=== PATIENT | female | born 1995 | race Caucasian/White ===

== ENCOUNTER → 2017-07-14 | Outpatient (CLI) | payer OTHER ==
--- NOTE | 2017-07-14 15:54 | RADIOLOGY REPORT (SQ) ---
EXAM DESCRIPTION: MRI RT LOWER JOINT WITHOUT COMPLETED DATE/TIME: 07/14/2017 9:16 am REASON FOR STUDY: UNSPECIFIED INTERNAL DERANGEMENT OF RIGHT KNEE (M23.91) M23.91 UNSPECIFIED MANAGER PAYER AL DERANGEMENT OF RIGHT KNEE COMPARISON: None. TECHNIQUE: Rightknee images acquired and stored on PACS. Multiplanar images include fat sensitive s equences as T1, water sensitive sequences as FST2 or STIR, cartilage sensitive sequences as FSPD, and gradient echo sequences. LIMITATIONS: None. FINDINGS: JOINT AND BURSAE: Small joint effusion. BONE CORTEX AND MARROW: No alteration of signal to suggest marrow replacement. No worrisome bone lesi ons. No occult fracture. ACL: Intact. No degeneration or ganglion cyst. PCL: Intact. MCL: Intact. No periligamentous edema or fluid. LCL: Intact. No periligamentous edema or fluid. MEDIAL MENISCUS: No tears. No abnormal signal. LATERAL MENISCUS: No tears. No abnormal signal. MEDIAL COMPARTMENT: Minimal irregular thinning of cartilage along the medial femoral condyles. LATERAL COMPARTMENT: Cartilage preserved. No bone bruises or reactive marrow edema. No osteophytes. PATELLA: No chondromalacia. No subchondral cysts. Medial and lateral retinacula intact. EXTENSOR MECHANISM: Intact. Quadriceps and patella tendons normal. SOFT TISSUES: Adjacent muscles and subcutaneous tissues normal. Normal flow void in popliteal artery and vein. OTHER: No other significant finding. IMPRESSION: Minimal thinning of articular cartilage along the medial femoral condyle. Small joint effusion. TECHNICAL DOCUMENTATION: JOB ID: [id number] [employer]- All Rights Reserved Reading location - IP/workstation name: [email or web address]
== END ==
LOC: RAD 08:26
PROVIDERS: ATTEND Family Medicine
DX: M23.91 Unspecified internal derangement of right knee (principal)

== ENCOUNTER 2018-02-01 16:18 | Emergency (ER) | payer OTHER, MEDICAID ==
[2018-02-01] MEDS ORDERED: ACETAMINOPHEN 325 MG TABLET PO ONE (17:34)
--- NOTE | 2018-02-01 17:36 | ER Document Report ---
ED Medical Screen (RME) - General Chief Complaint: Headache Stated Complaint: HEADACHE Time Seen by Provider: 02/01/18 17:29 Notes: Patient is a 23-year-old female, 27 weeks gravid that presents to the emergency department for chief complaint of headache, with aura. Patient states that around 2:00 today, she had a headache that started, she had 30 minutes of what she describes as spots in her vision, loss of sense resolved, but still complaining of a mild headache and she wanted to be evaluated for this. She does report history of preeclampsia in her prior . ROS: Other than noted above, the 12 point review of systems was reviewed with the patient and were negative, all pertinent findings are included in the HPI. PHYSICAL EXAMINATION: Vital signs reviewed. GENERAL: Well-appearing, well-nourished and in no acute distress. HEAD: Atraumatic, normocephalic. EYES: Pupils equal round extraocular movements intact, conjunctiva are normal. ENT: Nares patent NECK: Normal range of motion CV: Heart regular rate and rhythm LUNGS: No respiratory distress Musculoskeletal: Normal range of motion NEUROLOGICAL: Normal speech PSYCH: Normal mood, normal affect. MDM: Patient seen and examined for rapid initial assessment. Vital signs reviewed. A comprehensive ED assessment and evaluation of the patient, analysis of test results and completion of the medical decision making process will be conducted by additional ED providers. *Note is created using voice recognition software and may contain spelling, syntax or grammatical errors. TRAVEL OUTSIDE OF THE [place] IN LAST 30 DAYS: No - Related Data Allergies/Adverse Reactions: promethazine HCl [From Phenergan] Allergy (Intermediate, Verified 10/24/17 17:29 ) Facial swelling Past Medical History - Social History Chew tobacco use (# tins/day): No Frequency of alcohol use: None Drug Abuse: None Renal/ Medical History: Denies: Hx Peritoneal Dialysis Psychiatric Medical History: Reports: Hx Attention Deficit Hyperactivity Disorder, Hx Depression Past Surgical History: Reports: Hx Abdominal Surgery - pyloric stenosis, Hx Section - Immunizations Hx Diphtheria, Pertussis, Tetanus Vaccination: Yes Physical Exam - Vital signs Vitals: Temp Pulse Resp BP Pulse Ox 98.5 F 78 12 116/69 97 02/01/18 16:51 02/01/18 16:51 02/01/18 16:51 02/01/18 16:51 02/01/18 16:51 Course - Vital Signs Vital signs: Temp Pulse Resp BP Pulse Ox 98.5 F 78 12 116/69 97 02/01/18 16:51 02/01/18 16:51 02/01/18 16:51 02/01/18 16:51 02/01/18 16:51 Doctor's Discharge - Discharge Referrals: MARIIA SHERWOOD NP [Primary Care Provider] - Follow up as needed
[2018-02-01 18:21] LABS: ABSOLUTE BASOPHILS # (AUTO) 0.1 10^3/uL (0.0-0.2); ABSOLUTE EOSINOPHILS # (AUTO) 0.1 10^3/uL (0.0-0.6); ABSOLUTE LYMPHOCYTES (AUTO) 2.4 10^3/uL (0.5-4.7); ABSOLUTE MONOCYTES (AUTO) 0.7 10^3/uL (0.1-1.4); ABSOLUTE NEUT (AUTO) 6.1 10^3/uL (1.7-8.2); BASOPHILS % (AUTO) 0.6 % (0-2); EOSINOPHILS % (AUTO) 0.7 % (0-6); HEMATOCRIT 32.2 % (36.0-47.0); HEMOGLOBIN 10.9 g/dL (12.0-15.5); LYMPHOCYTES % (AUTO) 25.5 % (13-45); MEAN CORPUSCULAR HEMOGLOBIN 26.4 pg (27.0-33.4); MEAN CORPUSCULAR VOLUME 78 fl (80-97); MONOCYTES % (AUTO) 7.5 % (3-13); PLATELET COUNT 258 10^3/uL (150-450); RED BLOOD COUNT 4.14 10^6/uL (3.72-5.28); RED CELL DISTRIBUTION WIDTH 15.4 % (11.5-14.0); SEGMENTED NEUTROPHILS % (AUTO) 65.7 % (42-78); TOTAL CELLS COUNTED % (AUTO) 100 %; WHITE BLOOD COUNT 9.3 10^3/uL (4.0-10.5)
[2018-02-01 18:24] LABS: APPEARANCE,URINE CLEAR; BILIRUBIN,URINE NEGATIVE (NEGATIVE); COLOR,URINE YELLOW; GLUCOSE, URINE NEGATIVE (NEGATIVE); KETONES,URINE NEGATIVE (NEGATIVE); LEUKOCYTE ESTERASE,URINE TRACE (NEGATIVE); NITRITE,URINE NEGATIVE (NEGATIVE); PROTEIN,URINE NEGATIVE (NEGATIVE); URINE SPECIFIC GRAVITY 1.025
[2018-02-01 18:41] LABS: ALANINE AMINOTRANSFERASE 10 U/L (9-52); ALBUMIN 3.5 g/dL (3.5-5.0); ALKALINE PHOSPHATASE 73 U/L (38-126); ANION GAP 11 (5-19); ASPARTATE AMINO TRANSFERASE 15 U/L (14-36); BILIRUBIN,DIRECT 0.2 mg/dL (0.0-0.4); BILIRUBIN,TOTAL 0.5 mg/dL (0.2-1.3); BLOOD UREA NITROGEN 10 mg/dL (7-20); CALCIUM 9.2 mg/dL (8.4-10.2); CARBON DIOXIDE 27 mmol/L (22-30); CHLORIDE 99 mmol/L (98-107); GLUCOSE 81 mg/dL (75-110); POTASSIUM 4.3 mmol/L (3.6-5.0); SODIUM 136.9 mmol/L (137-145); TOTAL PROTEIN 6.7 g/dL (6.3-8.2)
[2018-02-01] MEDS ORDERED: CEPHALEXIN 500 MG CAPSULE PO ONE (19:06)
--- NOTE | 2018-02-01 19:09 | ER Document Report ---
HPI - HPI Patient complains to provider of: Headache Onset: This afternoon Onset/Duration: Gradual Quality of pain: Achy Pain Level: 2 Context: Patient is currently 27 weeks and reports headache pain that started around 2 PM. Patient states that after her headache started she had a 30- minute episode in which had spots in her vision. Patient denies any nausea or vomiting. Patient was given medication in triage and now states that her headache is almost completely resolved and she is feeling much better. Patient denies any visual disturbances at this time. Patient states that she did have a history of preeclampsia and she was concerned about this which prompted her visit today. Associated Symptoms: Headache. denies: Nonproductive cough, Earache, Fever, Nausea, Vomiting Exacerbated by: Denies Relieved by: Denies Similar symptoms previously: Yes Recently seen / treated by doctor: No - ROS ROS below otherwise negative: Yes Systems Reviewed and Negative: Yes All other systems reviewed and negative - CONSTITUTIONAL Constitutional: DENIES: Fever, Chills - EENT EENT: DENIES: Sore Throat - NEURO Neurology: REPORTS: Headache. DENIES: Weakness - GASTROINTESTINAL Gastrointestinal: DENIES: Nausea, Patient vomiting - REPRODUCTIVE Reproductive: DENIES: : - MUSCULOSKELETAL Musculoskeletal: DENIES: Back Pain, Neck Pain - DERM Skin Color: Normal Skin Problems: None <PEDRO GLORIA - Last Filed: 02/02/18 01:10> <JULIAN LIMON - Last Filed: 02/02/18 09:38> - HPI Time Seen by Provider: 02/01/18 17:29 Past Medical History - General Information source: Patient - Social History Smoking Status: Never Smoker Chew tobacco use (# tins/day): No Frequency of alcohol use: None Drug Abuse: None Occupation: None Lives with: Family Family History: CAD, Hyperlipidemia, Hypertension, Malignancy, Other - Mother: [place] Patient has suicidal ideation: No Patient has homicidal ideation: No Renal/ Medical History: Denies: Hx Peritoneal Dialysis Psychiatric Medical History: Reports: Hx Attention Deficit Hyperactivity Disorder, Hx Depression Past Surgical History: Reports: Hx Abdominal Surgery - pyloric stenosis, Hx Section - Immunizations Hx Diphtheria, Pertussis, Tetanus Vaccination: Yes <PEDRO GLORIA - Last Filed: 02/02/18 01:10> Vertical Provider Document - CONSTITUTIONAL Agree With Documented VS: Yes Exam Limitations: No Limitations General Appearance: WD/WN, No Apparent Distress - INFECTION CONTROL TRAVEL OUTSIDE OF THE [place] IN LAST 30 DAYS: No - HEENT HEENT: Atraumatic, Normal ENT Exam, Normocephalic, PERRLA. negative: Pharyngeal Exudate, Pharyngeal Tenderness, Pharyngeal Erythema, Tympanic Membrane Red, Tympanic Membrane Bulging - NECK Neck: Normal Inspection, Supple. negative: Lymphadenopathy-Left, Lymphadenopathy-Right Notes: No meningismus - RESPIRATORY Respiratory: Breath Sounds Normal, No Respiratory Distress - CARDIOVASCULAR Cardiovascular: Regular Rate, Regular Rhythm, No Murmur - GI/ABDOMEN Gastrointestinal: Abdomen Soft, Abdomen Non-Tender Notes: Gravid abdomen - BACK Back: Normal Inspection. negative: CVA Tenderness-Right, CVA Tenderness-Left - MUSCULOSKELETAL/EXTREMETIES Musculoskeletal/Extremeties: DELVIS BOURGEOIS - NEURO Level of Consciousness: Awake, Alert, Appropriate Motor/Sensory: No Motor Deficit Notes: No focal neurologic deficit - DERM Integumentary: Warm, Dry, No Rash <PEDRO GLORIA - Last Filed: 02/02/18 01:10> Course - Re-evaluation Re-evalutation: 02/01/18 19:07 Patient reports that headache pain is resolved at this time. Patient denies any abdominal pain or back pain. Patient with incidental leukocyte esterase noted on urinalysis, urine culture will be obtained and patient will be started on short course of antibiotics at this time. No concern for preeclampsia. Patient without any protein in the urine with normal blood pressure and otherwise benign diagnostic evaluation. The patient presents with headache without signs of SECOND OFFICER bleed, stroke, infection, or other serious etiology. The patient is neurologically intact. Given the extremely low risk of these diagnoses further testing and evaluation for these possibilities does not appear to be indicated at this time. The patient has been instructed to return if the symptoms worsen or change in any way. - Vital Signs Vital signs: Temp Pulse Resp BP Pulse Ox 98.5 F 78 12 116/69 97 02/01/18 16:51 02/01/18 16:51 02/01/18 16:51 02/01/18 16:51 02/01/18 16:51 - Laboratory Result Diagrams: 02/01/18 18:06 02/01/18 18:06 Laboratory results interpreted by me: 02/01/18 02/01/18 02/01/18 18:06 18:06 18:06 Hgb 10.9 L Hct 32.2 L MCV 78 L MCH 26.4 L RDW 15.4 H Sodium 136.9 L Urine Urobilinogen 4.0 H Ur Leukocyte Esterase TRACE H 02/01/18 19:08 Labs- Entire Visit 02/01/18 02/01/18 02/01/18 18:06 18:06 18:06 WBC 9.3 RBC 4.14 Hgb 10.9 L Hct 32.2 L MCV 78 L MCH 26.4 L MCHC 34.0 RDW 15.4 H Plt Count 258 Seg Neutrophils % 65.7 Lymphocytes % 25.5 Monocytes % 7.5 Eosinophils % 0.7 Basophils % 0.6 Absolute Neutrophils 6.1 Absolute Lymphocytes 2.4 Absolute Monocytes 0.7 Absolute Eosinophils 0.1 Absolute Basophils 0.1 Sodium 136.9 L Potassium 4.3 Chloride 99 Carbon Dioxide 27 Anion Gap 11 BUN 10 Creatinine 0.58 Est GFR ( Amer) > 60 Est GFR (Non-Af Amer) > 60 Glucose 81 Calcium 9.2 Magnesium 1.7 Total Bilirubin 0.5 Direct Bilirubin 0.2 Neonat Total Bilirubin Not Reportable Neonat Direct Bilirubin Not Reportable Neonat Indirect Bili Not Reportable AST 15 ALT 10 Alkaline Phosphatase 73 Total Protein 6.7 Albumin 3.5 Urine Color YELLOW Urine Appearance CLEAR Urine pH 6.0 Ur Specific [place] 1.025 Urine Protein NEGATIVE Urine Glucose (UA) NEGATIVE Urine Ketones NEGATIVE Urine Blood NEGATIVE Urine Nitrite NEGATIVE Urine Bilirubin NEGATIVE Urine Urobilinogen 4.0 H Ur Leukocyte Esterase TRACE H Urine WBC (Auto) 3 Urine RBC (Auto) 2 Urine Bacteria (Auto) TRACE Squamous Epi Cells Auto 6 Urine Mucus (Auto) MOD Urine Ascorbic Acid NEGATIVE <PEDRO GLORIA - Last Filed: 02/02/18 01:10> - Re-evaluation Re-evalutation: I personally and independently obtained patient history and examined the patient in conjunction with the APC and agree with the assessment, treatment plan and disposition of the patient as recorded by the APC, and have reviewed the APC's note. HISTORY OF PRESENT ILLNESS: Patient is a 23-year-old female that is approximately 27 weeks gravid that presents to the emergency department for chief complaint of headache. Patient did have spots in her vision earlier today as well, denies loss of consciousness or syncope, headache is much improved from earlier, the episode of spots in her vision lasted about 30 minutes, and has since resolved, this occurred around 2 PM today. Currently rates her headache as a 2 out of 10. Patient does report history of preeclampsia with her last , but has not had issues so far with this . ROS: Constitutional: Negative for fever. Cardiovascular: Negative for chest pain. Respiratory: Negative for shortness of breath. Gastrointestinal: Negative for vomiting or abdominal pain Musculoskeletal: Negative for arm, leg or back pain Skin: Negative for rash. Neurological: Negative for weakness or numbness. Other than noted above, the 12 point review of systems was reviewed with the patient and were negative, all pertinent findings are included in the HPI. PHYSICAL EXAMINATION: Vital signs reviewed, nursing noted reviewed. GENERAL: Well-appearing, well-nourished and in no acute distress. HEAD: Atraumatic, normocephalic. EYES: Eyes appear normal, conjunctiva are normal. ENT: nares patent, oropharynx clear without exudates. Moist mucous membranes. NECK: Normal range of motion, supple without lymphadenopathy LUNGS: Breath sounds clear to auscultation bilaterally and equal. No wheezes rales or rhonchi. HEART: Regular rate and rhythm without murmurs ABDOMEN: Soft, gravid, nontender, normoactive bowel sounds. No rebound, guarding, or rigidity. No masses appreciated. EXTREMITIES: Nontender, good range of motion, no pitting or edema. NEUROLOGICAL: No focal neurological deficits. Moves all extremities spontaneously Motor and sensory grossly intact on exam. PSYCH: Normal mood, normal affect. SKIN: Warm, Dry, normal turgor, no rashes or lesions noted on exposed MEDICAL DECISION MAKING: Patient was treated with Tylenol, urinalysis and blood work was obtained, demonstrated trace signs of possible urinary tract infection, but no protein in the urine, and blood pressure was normotensive, and , we will treat possible UTI with antibiotics, sent for culture, patient was improved and discharged home to follow-up with [facility]. Please review detail APC documentation. *Note is created using voice recognition software and may contain spelling, syntax or grammatical errors. - Vital Signs Vital signs: Temp Pulse Resp BP Pulse Ox 98.6 F 72 18 95/62 L 93 02/01/18 19:22 02/01/18 19:22 02/01/18 19:22 02/01/18 19:22 02/01/18 19:22 - Laboratory Result Diagrams: 02/01/18 18:06 02/01/18 18:06 Laboratory results interpreted by me: 02/01/18 02/01/18 02/01/18 18:06 18:06 18:06 Hgb 10.9 L Hct 32.2 L MCV 78 L MCH 26.4 L RDW 15.4 H Sodium 136.9 L Urine Urobilinogen 4.0 H Ur Leukocyte Esterase TRACE H <JULIAN LIMON - Last Filed: 02/02/18 09:38> Discharge <PEDRO GLORIA - Last Filed: 02/02/18 01:10> <JULIAN LIMON - Last Filed: 02/02/18 09:38> - Discharge Clinical Impression: Headache Qualifiers: Headache type: unspecified Headache chronicity pattern: unspecified pattern Intractability: not intractable Qualified Code(s): R51 - Headache UTI (urinary tract infection) Qualifiers: Urinary tract infection type: site unspecified Hematuria presence: without hematuria Qualified Code(s): N39.0 - Urinary tract infection, site not specified Condition: Stable Disposition: HOME, SELF-CARE Instructions: Acetaminophen, Cephalexin ([facility]), Headache ([facility]), Urinary Tract Infection ([facility]) Additional Instructions: Return immediately for any new or worsening symptoms Followup with your primary care provider, call tomorrow to make a followup appointment Prescriptions: Cephalexin Monohydrate [Keflex 500 mg Capsule] 500 mg PO BID 5 Days capsule Referrals: [facility] [Provider Group] - Follow up tomorrow
[2018-02-01 19:31] VITALS: BP 95/62
== END 2018-02-01 19:31 | disposition home or self-care (01) ==
LOC: EDSTATUS 16:18 → ER 16:18 → MERGE 16:18 → ER 19:31
DX: O26.892 Other specified pregnancy related conditions, second trimester (principal); R51 Headache; Z3A.27 27 weeks gestation of pregnancy
CPT/HCPCS: 36415; 80053; 81001; 83735; 85025; 87086; 99284

== ENCOUNTER 2018-02-07 18:46 | Outpatient (CLI) | payer OTHER, MEDICAID ==
[2018-02-07 19:41] LABS: APPEARANCE,URINE CLEAR; BILIRUBIN,URINE SMALL (NEGATIVE); GLUCOSE, URINE NEGATIVE (NEGATIVE); KETONES,URINE NEGATIVE (NEGATIVE); LEUKOCYTE ESTERASE,URINE SMALL (NEGATIVE); NITRITE,URINE NEGATIVE (NEGATIVE); PROTEIN,URINE 30 mg/dL (NEGATIVE); URINE SPECIFIC GRAVITY 1.028
[2018-02-07 19:42] LABS: COLOR,URINE DARK YELLOW
[2018-02-07 19:52] LABS: URINE AMPHETAMINES SCREEN NEGATIVE; URINE BARBITURATES SCREEN NEGATIVE; URINE BENZODIAZEPINES SCREEN NEGATIVE; URINE COCAINE SCREEN NEGATIVE; URINE MARIJUANA (THC) SCREEN NEGATIVE; URINE METHADONE SCREEN NEGATIVE; URINE PHENCYCLIDINE SCREEN NEGATIVE
== END 2018-02-07 21:09 | disposition home or self-care (01) ==
LOC: LC 18:46
PROVIDERS: ATTEND Obstetrics & Gynecology
DX: Z34.92 Encounter for supervision of normal pregnancy, unspecified, second trimester (principal)
CPT/HCPCS: 80307; 81001

== ENCOUNTER 2018-02-14 21:12 | Emergency (ER) | payer OTHER, MEDICAID ==
--- NOTE | 2018-02-14 22:20 | ER Document Report ---
ED General - General Mode of Arrival: Ambulatory Information source: Patient TRAVEL OUTSIDE OF THE [place] IN LAST 30 DAYS: No <BRENDA GOLDEN - Last Filed: 02/14/18 22:25> <ALLY VICTORIA - Last Filed: 02/15/18 00:33> - General Chief Complaint: Breathing Difficulty Stated Complaint: TROUBLE BREATHING Time Seen by Provider: 02/14/18 22:02 Notes: Patient is a 23 year old female, currently 29 weeks , with ADHD, depression and a history of preeclampsia presents to the emergency department complaining of difficulty breathing onset a few hours ago. Patient states approximately 2 hours ago she began to have difficulty breathing, further describing it as "hard to catch my breath". She then states she began to have lower back pain and pain to the sides of her abdomen. Patient states she currently feels better although she feels "out of breath". Patient states she has a history of preeclampsia and is currently on Aspirin. She is also prescribed Prozac, BuSpar and Abilify. Patient is scheduled to have a at 39 weeks. (BRENDA GOLDEN) - Related Data Allergies/Adverse Reactions: promethazine HCl [From Phenergan] Allergy (Intermediate, Verified 10/24/17 17:29 ) Facial swelling promethazine [From Phenergan] Allergy (Verified 11/20/17 18:15) Past Medical History - General Information source: Patient - Social History Smoking Status: Never Smoker Cigarette use (# per day): No Chew tobacco use (# tins/day): No Smoking Education Provided: No Frequency of alcohol use: None Drug Abuse: None Family History: Malignancy, CAD, Hyperlipidemia, Hypertension, Reviewed & Not Pertinent, Other - Past Medical History Cardiac Medical History: Reports: Other - Preeclampsia Psychiatric Medical History: Reports: Hx Attention Deficit Hyperactivity Disorder, Hx Depression Past Surgical History: Reports: Hx Abdominal Surgery - pyloric stenosis, Hx Section - Immunizations Hx Diphtheria, Pertussis, Tetanus Vaccination: Yes <BRENDA GOLDEN - Last Filed: 02/14/18 22:25> Review of Systems - Review of Systems Constitutional: No symptoms reported EENT: No symptoms reported Cardiovascular: No symptoms reported Respiratory: See HPI Gastrointestinal: See HPI, Abdominal pain Genitourinary: No symptoms reported Female Genitourinary: No symptoms reported Musculoskeletal: No symptoms reported Skin: No symptoms reported Hematologic/Lymphatic: No symptoms reported Neurological/Psychological: No symptoms reported -: Yes All other systems reviewed and negative <BRENDA GOLDNE - Last Filed: 02/14/18 22:25> Physical Exam <BRENDA GOLDEN - Last Filed: 02/14/18 22:25> <ALLY VICTORIA - Last Filed: 02/15/18 00:33> - Vital signs Vitals: Temp Pulse Resp BP Pulse Ox 98.8 F 88 16 116/73 98 02/14/18 21:29 12 21:29 12 21:29 02/14/18 21:29 02/14/18 21:29 - Notes Notes: GENERAL: Alert, interacts well. No acute distress. HEAD: Normocephalic, atraumatic. EYES: Pupils equal, round, and reactive to light. Extraocular movements intact. ENT: Oral mucosa moist, tongue midline. NECK: Full range of motion. Supple. Trachea midline. LUNGS: Clear to auscultation bilaterally, no wheezes, rales, or rhonchi. No respiratory distress. Oxygen saturation 97% on room air. HEART: Regular rate and rhythm. No murmurs, gallops, or rubs. ABDOMEN: Gravid. Bowel sounds present in all 4 quadrants. EXTREMITIES: Moves all 4 extremities spontaneously. NEUROLOGICAL: Alert and oriented x3. Normal speech. PSYCH: Normal affect, normal mood. SKIN: Warm, dry, normal turgor. No rashes or lesions noted. (BRENDA GOLDEN) Course - Laboratory Result Diagrams: 02/14/18 21:47 02/14/18 21:47 <BRENDA GOLDEN - Last Filed: 02/14/18 22:25> - Laboratory Result Diagrams: 02/14/18 21:47 02/14/18 21:47 - Diagnostic Test Radiology reviewed: Image reviewed, Reports reviewed - CTA of the chest does not show pulmonary emboli. The liver shows fatty infiltration. The spleen is enlarged at 14 cm. <ALLY VICTORIA - Last Filed: 02/15/18 00:33> - Re-evaluation Re-evalutation: 02/15/18 00:32 The patient was walked down the hallway, her pulse ox went from 97% up to 100%, her pulse went to 101. She complained of more shortness of breath and chest pain, so CTA chest was ordered. The scan did not show any pulmonary abnormalities or vascular abnormalities. It did show fatty infiltration of the liver and an enlarged spleen. (ALLY VICTORIA) - Vital Signs Vital signs: Temp Pulse Resp BP Pulse Ox 98.8 F 88 16 116/73 98 02/14/18 21:29 02/14/18 21:29 02/14/18 21:29 02/14/18 21:29 02/14/18 21:29 - Laboratory Laboratory results interpreted by me: 02/14/18 02/14/18 02/14/18 21:47 21:47 22:05 Hgb 10.4 L Hct 30.7 L MCV 77 L MCH 26.0 L RDW 16.2 H D-Dimer Creatinine 0.48 L Glucose 121 H Albumin 3.3 L Urine Protein 30 H Urine Glucose (UA) 50 H Urine Bilirubin SMALL H Urine Urobilinogen 4.0 H Ur Leukocyte Esterase SMALL H 02/14/18 22:27 Hgb Hct MCV MCH RDW D-Dimer 1.22 H Creatinine Glucose Albumin Urine Protein Urine Glucose (UA) Urine Bilirubin Urine Urobilinogen Ur Leukocyte Esterase Discharge <BRENDA GOLDEN - Last Filed: 02/14/18 22:25> <ALLY VICTORIA - Last Filed: 02/15/18 00:33> - Discharge Clinical Impression: Shortness of breath, Second trimester , Round ligament pain, Spleen enlargement, Calcium oxalate crystals present in urine Condition: Stable Disposition: HOME, SELF-CARE Additional Instructions: Dyspnea, Nonspecific You were evaluated for shortness of breath, or dyspnea. Dyspnea has many causes, and some are more serious than others. Sometimes it's impossible to diagnose the cause of dyspnea with the tests that are available on an emergency basis. Based on our evaluation today, you do not need hospitalization now. We found no evidence of pneumonia, collapsed lung, blood clots in the lung, tumors , or heart failure. Causes of non-specific dyspnea can include asthma or bronchospasm, hyperventilation, emotional distress, heart disease, emphysema, fibrosis of the lung, and stiffness of the chest wall. In healthy individuals with a single episode, it's sometimes reasonable to do nothing but wait to see if the problem occurs again. Additional tests used to evaluate dyspnea can include cardiac stress testing, echocardiography, pulmonary function testing, CAT scan of the chest, bronchoscopy or pulmonary biopsy. Return if shortness of breath persists or worsens, or if you develop chest pain, fever, cough, confusion, or fainting. The CT scan of your chest did not show evidence of blood clots or other abnormalities in your lungs. The scan did show fatty infiltration of the liver, and an enlarged spleen which are unrelated to your symptoms this evening. The urine tonight was concentrated and showed large amount of calcium oxalate crystals in the urine, this does put you at risk for forming kidney stones. The pain on either side of your abdomen is most likely related to the round ligaments supporting the enlarging uterus and fetus. You should drink plenty of fluids this evening and on a regular basis to help prevent forming kidney stones. You may take Tylenol for pain if needed. Follow-up with your [employer] doctor in the next few days to discuss your symptoms and the CT scan findings. RETURN TO THE EMERGENCY ROOM IF ANY NEW OR WORSENING SYMPTOMS. Referrals: [facility] [Provider Group] - Follow up in 3-5 days LISA MCKINLEY MD [Primary Care Provider] - Follow up in 3-5 days Scribe Attestation: 02/14/18 23:08 I personally performed the services described in the documentation, reviewed and edited the documentation which was dictated to the scribe in my presence, and it accurately records my words and actions. (ALLY VICTORIA) Scribe Documentation - Scribe Written by Radha:: Radha Dukes, 02/14/2018 22:23 acting as scribe for :: Jonatan <BRENDA GOLDEN - Last Filed: 02/14/18 22:25>
[2018-02-14 22:22] LABS: ABSOLUTE EOSINOPHILS # (AUTO) 0.1 10^3/uL (0.0-0.6); ABSOLUTE LYMPHOCYTES (AUTO) 2.5 10^3/uL (0.5-4.7); ABSOLUTE MONOCYTES (AUTO) 0.7 10^3/uL (0.1-1.4); ABSOLUTE NEUT (AUTO) 5.9 10^3/uL (1.7-8.2); BASOPHILS % (AUTO) 0.2 % (0-2); EOSINOPHILS % (AUTO) 0.8 % (0-6); HEMATOCRIT 30.7 % (36.0-47.0); HEMOGLOBIN 10.4 g/dL (12.0-15.5); LYMPHOCYTES % (AUTO) 26.7 % (13-45); MEAN CORPUSCULAR HGB CONC 33.8 g/dL (32.0-36.0); MEAN CORPUSCULAR VOLUME 77 fl (80-97); PLATELET COUNT 256 10^3/uL (150-450); RED BLOOD COUNT 3.99 10^6/uL (3.72-5.28); RED CELL DISTRIBUTION WIDTH 16.2 % (11.5-14.0); SEGMENTED NEUTROPHILS % (AUTO) 64.3 % (42-78); TOTAL CELLS COUNTED % (AUTO) 100 %; WHITE BLOOD COUNT 9.2 10^3/uL (4.0-10.5)
[2018-02-14 22:27] LABS: ALANINE AMINOTRANSFERASE 10 U/L (9-52); ALBUMIN 3.3 g/dL (3.5-5.0); ALKALINE PHOSPHATASE 80 U/L (38-126); ANION GAP 10 (5-19); ASPARTATE AMINO TRANSFERASE 15 U/L (14-36); BILIRUBIN,DIRECT 0.2 mg/dL (0.0-0.4); BILIRUBIN,TOTAL 0.3 mg/dL (0.2-1.3); BLOOD UREA NITROGEN 11 mg/dL (7-20); CALCIUM 9.3 mg/dL (8.4-10.2); CARBON DIOXIDE 26 mmol/L (22-30); CHLORIDE 102 mmol/L (98-107); GLUCOSE 121 mg/dL (75-110); POTASSIUM 3.6 mmol/L (3.6-5.0); SODIUM 137.9 mmol/L (137-145); TOTAL PROTEIN 6.3 g/dL (6.3-8.2)
[2018-02-14 22:53] LABS: APPEARANCE,URINE CLOUDY; BILIRUBIN,URINE SMALL (NEGATIVE); CALCIUM OXALATE CRYSTALS,URINE TOO NUMEROUS TO CNT /HPF; COLOR,URINE DARK YELLOW; GLUCOSE, URINE 50 mg/dL (NEGATIVE); KETONES,URINE NEGATIVE (NEGATIVE); LEUKOCYTE ESTERASE,URINE SMALL (NEGATIVE); NITRITE,URINE NEGATIVE (NEGATIVE); PROTEIN,URINE 30 mg/dL (NEGATIVE); URINE SPECIFIC GRAVITY 1.032
[2018-02-14] MEDS ORDERED: NORMAL SALINE 1000 ML 1,000 ML IV ONE (23:02)
--- NOTE | 2018-02-15 00:08 | RADIOLOGY REPORT (SQ) ---
EXAM DESCRIPTION: CT CHEST ANGIOGRAPHY WITHOUT THEN WITH IV CONTRAST COMPLETED DATE/TME: 02/14/2018 23:04 CLINICAL HISTORY: 23 years, Female, SOB, chest pain, 29wks gestation,elevated dimer COMPARISON: None. TECHNIQUE: 509 Images stored on PACS. All CT scanners at this facility use dose modulation, iterative reconstruction, and/or weight based dosing when appropriate to reduce radiation dose to as low as reasonably achievable (ALARA). Axial CT images were obtained with coronal and sagittal MIPS reconstructions [facility]: Dose Right [facility]: CareDose [facility]: Dose Right [facility]: Teradose 4D [facility]: Smart OneFold LIMITATIONS: None. FINDINGS: Suboptimal opacification of the pulmonary arterial tree limits the exam. However, no CTA evidence for central or large pulmonary embolus. Negative for thoracic aortic aneurysm or dissection. No mediastinal or hilar adenopathy. The heart and pericardium are unremarkable. Limited evaluation of the upper abdomen suggest fatty infiltrative change to the liver. Osseous structures are grossly intact. No pneumothorax. The visualized airways are patent. The lungs are clear. IMPRESSION: Suboptimal contrast bolus, however no convincing evidence for pulmonary most. Negative for thoracic aortic aneurysm or dissection. Fatty infiltrative change to the liver. Not stated previously, the spleen is enlarged at 14 cm TECHNICAL DOCUMENTATION: Quality ID # [id number]: Final reports with documentation of one or more dose reduction techniques (e.g., Automated exposure control, adjustment of the mA and/or kV according to patient size, use of iterative reconstruction technique) copyright 2010 [employer]- All Rights Reserved
[2018-02-15 01:13] VITALS: BP 116/74
== END 2018-02-15 01:13 | disposition home or self-care (01) ==
LOC: ER 21:12
DX: O26.93 Pregnancy related conditions, unspecified, third trimester (principal); R16.1 Splenomegaly, not elsewhere classified; R06.00 Dyspnea, unspecified; R82.998 Other abnormal findings in urine; R10.30 Lower abdominal pain, unspecified; Z3A.29 29 weeks gestation of pregnancy
CPT/HCPCS: 99285; 96360; 36415; 85025; 80053; 81001; 85379; 71275; J7030

== ENCOUNTER 2018-02-15 08:21 | Emergency (ER) | payer OTHER, MEDICAID ==
[2018-02-15 09:53] VITALS: BP 117/82
--- NOTE | 2018-02-15 10:15 | ER Document Report ---
ED General - General Chief Complaint: Breathing Difficulty Stated Complaint: DIFFICULTY BREATHING Time Seen by Provider: 02/15/18 09:05 TRAVEL OUTSIDE OF THE [place] IN LAST 30 DAYS: No - HPI Notes: Patient is a 23-year-old female that presents to the emergency department for chief complaint of palpitations and shortness of breath. Patient is at 29 weeks gestational age. She was seen here yesterday for the same symptoms. Patient states that she was sitting in her MELTER CLERK's office this morning waiting for her follow-up appointment and started to feel palpitations. She then felt very lightheaded and short of breath. When she told the nurse at the counter her symptoms she was told that she should go to the emergency room. Patient states her symptoms today felt the same as they did when she was evaluated yesterday. Currently she is feeling better than when she was at her doctor's office. She is having a mild substernal chest pain that is nonradiating. The pain has been intermittent. She has a history of preeclampsia with her previous but denies any issues with this . She denies any abdominal pain, cramping and vaginal discharge or bleeding. Past Medical History: ADHD, history of preeclampsia Past Surgical History: , pyloric stenosis Social History: Denies drugs alcohol and tobacco Family History: Reviewed and noncontributory for presenting illness Allergies: Reviewed, see documented allergy list. REVIEW OF SYSTEMS: CONSTITUTIONAL : No fever No chills No diaphoresis No recent illness EENT: No vision changes No congestion No sore throat CARDIOVASCULAR: chest pain palpitations RESPIRATORY: shortness of breath No cough No difficulty breathing GASTROINTESTINAL: No abdominal pain No nausea No vomiting No diarrhea GENITOURINARY: No dysuria No hematuria No difficulty urinating MUSCULOSKELETAL: No back pain No leg pain No arm pain SKIN: No rashes No lesions LYMPHATIC: No swollen, enlarged glands. NEUROLOGICAL: No lightheadedness No headache No weakness No paresthesias PSYCHIATRIC: No anxiety No depression PHYSICAL EXAMINATION: Vital signs reviewed, nursing noted reviewed. GENERAL: Well-appearing, well-nourished and in no acute distress. HEAD: Atraumatic, normocephalic. EYES: Eyes appear normal, extraocular movements intact, sclera anicteric, conjunctiva are normal. ENT: nares patent, oropharynx clear without exudates. Moist mucous membranes. NECK: Normal range of motion, supple without lymphadenopathy LUNGS: Breath sounds clear to auscultation bilaterally and equal. No wheezes rales or rhonchi. HEART: Tachycardic and regular rhythm without murmurs ABDOMEN: Soft, nontender gravid uterus palpated above umbilicus, normoactive bowel sounds. No rebound, guarding, or rigidity. EXTREMITIES: Nontender, good range of motion, no pitting or edema. NEUROLOGICAL: No focal neurological deficits. Moves all extremities spontaneously Motor and sensory grossly intact on exam. PSYCH: Normal mood, normal affect. SKIN: Warm, Dry, normal turgor, no rashes or lesions noted on exposed skin - Related Data Allergies/Adverse Reactions: promethazine HCl [From Phenergan] Allergy (Intermediate, Verified 10/24/17 17:29 ) Facial swelling promethazine [From Phenergan] Allergy (Verified 11/20/17 18:15) Past Medical History - Social History Smoking Status: Never Smoker Chew tobacco use (# tins/day): No Frequency of alcohol use: None Family History: Malignancy, CAD, Hyperlipidemia, Hypertension, Reviewed & Not Pertinent, Other Patient has suicidal ideation: No Patient has homicidal ideation: No Renal/ Medical History: Denies: Hx Peritoneal Dialysis Psychiatric Medical History: Reports: Hx Attention Deficit Hyperactivity Disorder, Hx Depression Past Surgical History: Reports: Hx Abdominal Surgery - pyloric stenosis, Hx Section - Immunizations Hx Diphtheria, Pertussis, Tetanus Vaccination: Yes Physical Exam - Vital signs Vitals: Temp Pulse Resp BP Pulse Ox 98.2 F 120 H 16 113/80 98 02/15/18 08:26 02/15/18 08:26 02/15/18 08:26 02/15/18 08:26 02/15/18 08:26 Course - Re-evaluation Re-evalutation: 02/15/18 10:12 Vitals reviewed. Nursing notes reviewed. Patient is hemodynamically stable. She was tachycardic at presentation however without treatment her heart rate has decreased to 89. Patient has not had any dysrhythmia. There is no ischemic changes on EKG. I reviewed her chart from last night which showed a CT angio chest with no large pulmonary embolism. Her blood work was unremarkable. Further workup today not currently indicated since her symptoms are unchanged from last night. Patient has heart tones of 159. She has no signs of early labor. There was no HEELP syndrom on lab work obtained yesterday. Her blood pressure today is normal with no preeclampsia. Patient's care was discussed with Dr. Melendez, MELTER CLERK who recommends a cardiology evaluation but does not feel patient is requiring OB care today. Case was discussed with Dr. Walker who will see her in the office tomorrow for further evaluation. Patient will be discharged home in stable condition. She will return for any new or worsening symptoms. She is in agreement with this plan. - Vital Signs Vital signs: Temp Pulse Resp BP Pulse Ox 98.2 F 94 17 117/82 10 L 02/15/18 08:26 02/15/18 08:53 02/15/18 08:53 02/15/18 08:53 02/15/18 08:53 - EKG Interpretation by Me Additional EKG results interpreted by me: 02/15/18 10:15 Interpreted by myself [id number]: Normal sinus rhythm, rate 95, normal axis, no ectopy, no WPW Wellens or Brugada Discharge - Discharge Clinical Impression: Palpitations, SOB (shortness of breath) Condition: Stable Disposition: HOME, SELF-CARE Instructions: Palpitations (Irregular or Rapid Heartrate) ([facility]) Additional Instructions: Please return to the emergency department if you have any worsening, or concern of your symptoms. Please return to the emergency department if you develop chest pain, difficulty breathing, severe abdominal pain, or ongoing vomiting. Please follow-up with your primary care physician in 2-3 days and any other recommended physicians. If prescribed, take all medications as directed. If you have any questions or concerns do not hesitate to return the emergency department for evaluation. You should be receiving a phone call from Dr. Walker's office to schedule an appointment tomorrow or later this week. If you do not hear from them today please call his office for this appointment Referrals: LISA MCKINLEY MD [Primary Care Provider] - Follow up as needed JOSE D MATTHEWS MD [ACTIVE STAFF] - Follow up tomorrow
--- NOTE | 2018-02-15 15:19 | EKG REPORT ---
SEVERITY:- NORMAL ECG - SINUS RHYTHM : Confirmed by: Indio Wilcox 15-Feb-2018 15:18:59
== END 2018-02-15 10:36 | disposition home or self-care (01) ==
LOC: ER 08:21
DX: O26.893 Other specified pregnancy related conditions, third trimester (principal); R06.02 Shortness of breath; R00.2 Palpitations; Z3A.29 29 weeks gestation of pregnancy
CPT/HCPCS: 93005; 93010; 99284

== ENCOUNTER 2018-02-28 12:16 | Outpatient (CLI) | payer OTHER, MEDICAID ==
[2018-02-28 13:51] LABS: APPEARANCE,URINE CLEAR; BILIRUBIN,URINE NEGATIVE (NEGATIVE); COLOR,URINE YELLOW; GLUCOSE, URINE NEGATIVE (NEGATIVE); KETONES,URINE NEGATIVE (NEGATIVE); LEUKOCYTE ESTERASE,URINE TRACE (NEGATIVE); NITRITE,URINE NEGATIVE (NEGATIVE); PROTEIN,URINE NEGATIVE (NEGATIVE); URINE SPECIFIC GRAVITY 1.006; UROBILINOGEN,URINE NEGATIVE mg/dL (<2.0)
[2018-02-28 14:13] LABS: URINE AMPHETAMINES SCREEN NEGATIVE; URINE BARBITURATES SCREEN NEGATIVE; URINE BENZODIAZEPINES SCREEN NEGATIVE; URINE COCAINE SCREEN NEGATIVE; URINE MARIJUANA (THC) SCREEN NEGATIVE; URINE METHADONE SCREEN NEGATIVE; URINE PHENCYCLIDINE SCREEN NEGATIVE
== END 2018-02-28 13:22 | disposition home or self-care (01) ==
LOC: LC 12:16
PROVIDERS: ATTEND Obstetrics & Gynecology
DX: Z34.93 Encounter for supervision of normal pregnancy, unspecified, third trimester (principal)
CPT/HCPCS: 80307; 81001

== ENCOUNTER 2018-03-30 10:58 | Outpatient (CLI) | payer OTHER, MEDICAID ==
[2018-03-30 12:37] LABS: URINE AMPHETAMINES SCREEN NEGATIVE; URINE BARBITURATES SCREEN NEGATIVE; URINE BENZODIAZEPINES SCREEN NEGATIVE; URINE COCAINE SCREEN NEGATIVE; URINE MARIJUANA (THC) SCREEN NEGATIVE; URINE METHADONE SCREEN NEGATIVE; URINE PHENCYCLIDINE SCREEN NEGATIVE
--- NOTE | 2018-03-30 12:59 | Non Stress Test Report ---
Non Stress Test Datetime Report Generated by CPN: 03/30/2018 12:59 DEMOGRAPHIC EGA NST: 34.4 INDICATION Indication for Study: Ordered by Provider; Other Indication for Study (NST) Other: LABOR CHECK (Annotations: Data stored by CPN on behalf of user) MONITORING Monitor Explained: Monitor Explained; Test Explained; Patient Verbalized Understanding Time on Monitor: 03/30/2018 11:31 Time off Monitor: 03/30/2018 12:33 NST Duration: 62 NST INTERVENTIONS NST Interventions: PO Hydration; Reposition Patient Physician Notified NST: sarah marx, cnm reviewed strip BABY A: [id number] BABY A Movement : Present Contraction Frequency : OCC FHR Baseline : 135 Accelerations : 15X15 Variability : Moderate 6-25bpm (Annotations: Data stored by N on behalf of user) NST Review: Meets Criteria for Reactive NST NST Review and Verified By : VERENA CRESPO RN NST Results: Reactive NST REPORT Report Trigger: Send Report
== END 2018-03-30 12:43 | disposition home or self-care (01) ==
LOC: LC 10:58
PROVIDERS: ATTEND Obstetrics & Gynecology
PROC: 4A1HXCZ Monitoring of Products of Conception, Cardiac Rate, External Approach (ICD-10-PCS; principal; 2018-03-30)
DX: O26.893 Other specified pregnancy related conditions, third trimester (principal); R10.2 Pelvic and perineal pain; M54.9 Dorsalgia, unspecified; Z3A.34 34 weeks gestation of pregnancy
CPT/HCPCS: 59025; 80307

== ENCOUNTER 2018-09-02 18:18 | Emergency (ER) | payer OTHER, MEDICAID ==
[2018-09-02] MEDS ORDERED: HYDROCODONE/ACETAMINOPHEN 5-325 MG (6 TAB/ER DISP) PO PRN (20:28)
--- NOTE | 2018-09-02 20:31 | ER Document Report ---
HPI - HPI Patient complains to provider of: Right knee pain Time Seen by Provider: 09/02/18 20:23 Onset/Duration: Persistent Quality of pain: Achy Pain Level: 3 Context: Patient presents complaining of right knee pain. Patient was seen 3 days ago at the [facility] and had an x-ray that was negative for any fracture. Patient went to an urgent care today and was given a shot of Toradol for her knee pain. Patient is requesting MRI be performed tonight to further evaluate the cause of her persistent knee pain. Patient denies any new injuries. Associated Symptoms: Other - Right ankle injury right knee pain Exacerbated by: Standing, Movement, Walking Relieved by: Denies Similar symptoms previously: No Recently seen / treated by doctor: Yes - ROS ROS below otherwise negative: Yes Systems Reviewed and Negative: Yes All other systems reviewed and negative - CONSTITUTIONAL Constitutional: DENIES: Fever - GASTROINTESTINAL Gastrointestinal: DENIES: Nausea - REPRODUCTIVE Reproductive: DENIES: : - MUSCULOSKELETAL Musculoskeletal: REPORTS: Extremity pain - DERM Skin Color: Normal Skin Problems: None Past Medical History - General Information source: Patient - Social History Smoking Status: Never Smoker Frequency of alcohol use: None Drug Abuse: None Occupation: None Lives with: Spouse/Significant other Family History: Malignancy, CAD, Hyperlipidemia, Hypertension, Reviewed & Not Pertinent, Other Renal/ Medical History: Denies: Hx Peritoneal Dialysis Psychiatric Medical History: Reports: Hx Anxiety, Hx Attention Deficit Hyperactivity Disorder, Hx Depression Past Surgical History: Reports: Hx Abdominal Surgery - pyloric stenosis, Hx Section, Hx Herniorrhaphy - Immunizations Hx Diphtheria, Pertussis, Tetanus Vaccination: Yes Vertical Provider Document - CONSTITUTIONAL Agree With Documented VS: Yes Exam Limitations: No Limitations General Appearance: WD/WN, No Apparent Distress - INFECTION CONTROL TRAVEL OUTSIDE OF THE [place] IN LAST 30 DAYS: No - HEENT HEENT: Atraumatic, Normocephalic - NECK Neck: Normal Inspection - RESPIRATORY Respiratory: Breath Sounds Normal, No Respiratory Distress - CARDIOVASCULAR Cardiovascular: Regular Rate, Regular Rhythm Pulses: Normal: Posterior tibial, Dorsalis pedis - MUSCULOSKELETAL/EXTREMETIES Musculoskeletal/Extremeties: MAEW, Tender - Right knee joint tenderness along joint line, no joint effusion, no laxity with varus or valgus maneuvers. Patellar tendon intact., No Edema. negative: Edema, Eccymosis - NEURO Level of Consciousness: Awake, Alert, Appropriate Motor/Sensory: No Motor Deficit - DERM Integumentary: Warm, Dry, No Rash Course - Re-evaluation Re-evalutation: 09/02/18 20:29 She reports having a negative x-ray performed 3 days ago at the [facility] and was seen today at the urgent care and given a shot of Toradol. Patient states that the wrap she had on the knee was not helping her pain symptoms. We will add a knee immobilizer and treat symptomatically at this time. No indication for emergent MRI at this time. Patient encouraged to follow-up with her primary doctor tomorrow as planned. - Vital Signs Vital signs: Temp Pulse Resp BP Pulse Ox 98.4 F 83 16 133/68 H 98 09/02/18 18:22 09/02/18 18:22 09/02/18 18:22 09/02/18 18:22 09/02/18 18:22 Procedures - Immobilization Right Knee Pre-Proc Neuro Vasc Exam: Normal Immobilizer type: Knee immobilizer Performed by: PCT Post-Proc Neuro Vasc Exam: Normal Alignment checked and good: Yes Discharge - Discharge Clinical Impression: Right knee sprain Qualifiers: Encounter type: initial encounter Involved ligament of knee: unspecified ligament Qualified Code(s): S83.91XA - Sprain of unspecified site of right knee, initial encounter Condition: Stable Disposition: HOME, SELF-CARE Instructions: Use of Crutches ([facility]), Ice & Elevation ([facility]), Knee Immobilizing Splint ([facility]), Sprained Knee ([facility]) Additional Instructions: Return immediately for any new or worsening symptoms Followup with your primary care provider, call tomorrow to make a followup appointment Take your naproxen that you have at home as prescribed Follow-up with orthopedics for any persistent pain or problems Referrals: LISA MCKINLEY MD [Primary Care Provider] - Follow up as needed [facility] [Provider Group] - Follow up as needed
[2018-09-02 21:05] VITALS: BP 113/78
== END 2018-09-02 21:05 | disposition home or self-care (01) ==
LOC: ER 18:18
DX: S83.91XA Sprain of unspecified site of right knee, initial encounter (principal); M25.561 Pain in right knee; X58.XXXA Exposure to other specified factors, initial encounter
CPT/HCPCS: 99283; L1830

== ENCOUNTER 2019-01-12 09:02 | Emergency (ER) | payer OTHER, MEDICAID ==
[2019-01-12 09:09] VITALS: BP 117/76
--- NOTE | 2019-01-12 10:17 | RADIOLOGY REPORT (SQ) ---
EXAM DESCRIPTION: WRIST RIGHT 3 VIEWS COMPLETED DATE/TIME: 01/12/2019 10:02 am REASON FOR STUDY: pain with movement COMPARISON: None. NUMBER OF VIEWS: Three views. TECHNIQUE: AP, lateral, and oblique radiographic images acquired of the right wrist. LIMITATIONS: None. FINDINGS: MINERALIZATION: Normal. BONES: No acute fracture or dislocation. No worrisome bone lesions. Normal alignment. SOFT TISSUES: No soft tissue swelling. No foreign body. OTHER: No other significant finding. IMPRESSION: No evidence of acute bony abnormality. TECHNICAL DOCUMENTATION: JOB ID: [id number] [employer]- All Rights Reserved Reading location - IP/workstation name: [email or web address]
--- NOTE | 2019-01-12 10:49 | ER Document Report ---
ED Hand/Wrist Injury - General Chief Complaint: Wrist Pain Stated Complaint: WRIST PAIN Time Seen by Provider: 01/12/19 10:43 Primary Care Provider: LISA MCKINLEY MD [Primary Care Provider] - Follow up as needed Mode of Arrival: Ambulatory Information source: Patient Notes: 24-year-old female presented to ED for complaint of pain to her right wrist. She states she did not injure she does not know what happened she went to bed fine woke up this morning with pain with any movement to her wrist. X-rays completed before I saw her were negative for any injury. She does have full range of motion to her wrist. We will treat her with a cock-up for discomfort and have her follow-up with orthopedics. I have informed her only use this when the pain is bad to use the wrist as much as possible. Patient has verbalized understanding and agreement with this plan. TRAVEL OUTSIDE OF THE [place] IN LAST 30 DAYS: No - HPI Injury to: Wrist - Right Onset: This morning Where: Home Quality of pain: Sharp Severity: Moderate Pain Level: 4 Context: Other. 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 Lives with: Family Family History: Malignancy, CAD, Hyperlipidemia, Hypertension, Reviewed & Not Pertinent, Other Patient has suicidal ideation: No Patient has homicidal ideation: No Pulmonary Medical History: Reports: None EENT Medical History: Reports: None Neurological Medical History: Reports: None Endocrine Medical History: Reports: None Renal/ Medical History: Reports: None Malignancy Medical History: Reports: None GI Medical History: Reports: Other - Medical hernia Musculoskeletal Medical History: Reports None Psychiatric Medical History: Reports: Hx Anxiety, Hx Attention Deficit Hyperactivity Disorder, Hx Depression Traumatic Medical History: Reports: None Past Surgical History: Reports: Hx Abdominal Surgery - pyloric stenosis, Hx Section, Hx Umbilical Hernia - Immunizations Hx Diphtheria, Pertussis, Tetanus Vaccination: Yes Review of Systems - Review of Systems Constitutional: No symptoms reported EENT: No symptoms reported Cardiovascular: No symptoms reported Respiratory: No symptoms reported Gastrointestinal: No symptoms reported Genitourinary: No symptoms reported Female Genitourinary: No symptoms reported Musculoskeletal: Other - Right wrist pain no injuries Skin: No symptoms reported Hematologic/Lymphatic: No symptoms reported Neurological/Psychological: No symptoms reported -: Yes All other systems reviewed and negative Physical Exam - Vital signs Vitals: Temp Pulse Resp BP Pulse Ox 98.0 F 88 18 117/76 98 01/12/19 09:08 01/12/19 09:08 01/12/19 09:08 01/12/19 09:08 01/12/19 09:08 Interpretation: Normal - General General appearance: Appears well, Alert - HEENT Head: Normocephalic, Atraumatic Eyes: Normal Pupils: PERRL - Respiratory Respiratory status: No respiratory distress Chest status: Nontender Breath sounds: Normal Chest palpation: Normal - Cardiovascular Rhythm: Regular Heart sounds: Normal auscultation Murmur: No - Abdominal Inspection: Normal Distension: No distension Bowel sounds: Normal Tenderness: Nontender Organomegaly: No organomegaly - Back Back: Normal, Nontender - Extremities General upper extremity: Normal inspection, Normal color, Normal ROM, Normal temperature General lower extremity: Normal inspection, Nontender, Normal color, Normal ROM, Normal temperature, Normal weight bearing. No: Adolph's sign Wrist: Tender - Pain with range of motion. No: Abrasion, Axial load of thumb pain, Deformity, Dislocation, Ecchymosis, Instability, Limited ROM - Has full range of motion some pain with range of motion, Navicular tenderness - Neurological Neuro grossly intact: Yes Cognition: Normal Orientation: AAOx4 [place] Coma Scale Eye Opening: Spontaneous Marcia Coma Scale Verbal: Oriented [place] Coma Scale Motor: Obeys Commands [place] Coma Scale Total: 15 Speech: Normal Motor strength normal: LUE, RUE, LLE, RLE Sensory: Normal - Psychological Associated symptoms: Normal affect, Normal mood - Skin Skin Temperature: Warm Skin Moisture: Dry Skin Color: Normal Course - Re-evaluation Re-evalutation: 01/12/19 21:57 Discussed x-rays with patient and patient was treated with splint and instructed to follow-up with orthopedics. Patient verbalized understanding and agreement with treatment plan and patient was discharged home. - Vital Signs Vital signs: Temp Pulse Resp BP Pulse Ox 98.0 F 88 18 117/76 98 01/12/19 09:08 01/12/19 09:08 01/12/19 09:08 01/12/19 09:08 01/12/19 09:08 - Diagnostic Test Radiology reviewed: Image reviewed, Reports reviewed Procedures - Immobilization Right Wrist Time completed: 10:56 Pre-Proc Neuro Vasc Exam: Normal Immobilizer type: Cock-up Performed by: PCT Post-Proc Neuro Vasc Exam: Normal Alignment checked and good: Yes Discharge - Discharge Clinical Impression: Pain with range of motion to the right wrist Condition: Stable Disposition: HOME, SELF-CARE Additional Instructions: you state you have pain with range of motion of the right wrist. You also state there is no injuries but you woke up with this pain. X-rays did not show any injuries at this time. I have treated you with a cock-up splint to help you with your comfort. Please follow-up with an hub inventory specialist if your wrist continues to hurt. There are repetitive motions that cause calls chronic injuries to the wrist and these will need to be ruled out by a hub inventory specialist. Use the cock-up splint when the pain is bad otherwise use your ankle as normal. Epsom Salt Soaks Soak the wound area in a container of warm epsom salt water. If you can't get the wound area into a bucket or fulton, use a folded towel soaked in the epsom salt solution and apply to the area. Use clean hot tap water (about the temperature of a very warm bath), mixing in about one (1) teaspoon for every pint of water. Two gallon --> 16 teaspoons Epsom Salts One gallon --> 8 teaspoons Epsom Salts Two quarts --> 4 teaspoons Epsom Salts One quart --> 2 teaspoons Epsom Salts Soak the wound for about 20 minutes while gently moving it around in the water. Repeat this four (4) times a day. Ice & Elevation Apply ice packs frequently against the painful area. Many different schedules are recommended, such as "20 minutes on, 20 minutes off" or "one hour ice, two hours rest." If you need to work, you may need to go longer between ice treatments. You should plan to have the area ice packed AT LEAST one-fourth of the time. The ice should be applied over the wrap, tape, or splint, or over a layer of cloth -- not directly against the skin. Some ice bags have a built-in cloth and can be put directly on the skin. Your injured part should be elevated as much as possible over the next 48 hours. Try to keep the injury above the level of the heart. Avoid use of the injured area. Elevation and rest will decrease the swelling. FOLLOW-UP CARE: If you have been referred to a physician for follow-up care, call the physicians office for an appointment as you were instructed or within the next two days. If you experience worsening or a significant change in your symptoms, notify the physician immediately or return to the Emergency Department at any time for re-evaluation. Referrals: LISA MCKINLEY MD [Primary Care Provider] - Follow up as needed
== END 2019-01-12 11:00 | disposition home or self-care (01) ==
LOC: ER 09:02
DX: M25.531 Pain in right wrist (principal); Z88.8 Allergy status to other drugs, medicaments and biological substances
CPT/HCPCS: 99283